=== PATIENT | male | born 1975 | race African-American/Black ===

== ENCOUNTER 2023-05-28 21:38 | Inpatient (IN) | payer OTHER ==
[2023-05-29] MEDS ORDERED: Acetaminophen 325 MG TAB PO PRN (01:23)
[2023-05-29] MEDS ORDERED: Ondansetron ODT 4 MG TAB PO PRN (01:23)
[2023-05-29 01:52] VITALS: BMI 61.7
[2023-05-29] MEDS ORDERED: Aspirin Chewable 81 MG TAB PO SCH (02:30)
[2023-05-29] MEDS ORDERED: Gabapentin 300 MG CAP PO SCH ×2 (03:30)
[2023-05-29 04:36] LABS: #Eosinphils 0.1 thou/uL (0.0-0.7); #Monocytes 0.7 thou/uL (0.11-0.59); #Neutrophils 3.5 thou/uL (1.40-6.50); %Basophils 0.5 % (0.0-1.0); %Eosinophils 0.9 % (0.0-10.0); %Lymphocytes 33.8 % (21.0-51.0); %Monocytes 10.7 % (0.0-10.0); %Neutrophils 53.6 % (42.0-75.0); Hematocrit 41.4 % (42.0-52.0); Hemoglobin 13.3 g/dL (14.0-18.0); Mean Corpuscular HGB CONC 32.1 g/dL (32.0-36.0); Mean Corpuscular Hemoglobin 32.7 pg (27.0-31.0); Mean Corpuscular Volume 101.7 fl (78.0-98.0); Mean Platelet Volume 9.4 fL (7.4-10.4); Platelet Count 191 10x3/uL (130-400); RBC Distribution Width 14.2 % (11.5-14.5); Red Blood Cell (RBC) Count 4.07 mill/uL (4.70-6.10); White Blood Cell (WBC) Count 6.5 10x3/uL (4.8-10.8)
[2023-05-29 04:44] LABS: Hemoglobin A1c 7.3 % (4.0-6.0)
[2023-05-29 05:02] LABS: ALT (SGPT) 18 U/L (8-55); AST (SGOT) 20 U/L (5-34); Albumin 3.7 g/dL (3.5-5.0); Alkaline Phosphatase 96 U/L (40-110); Anion Gap 16 mmol/L (10-20); BUN (Urea Nitrogen) 45 mg/dL (8.9-20.6); Bilirubin, Total 0.9 mg/dL (0.2-1.2); Calc. Creatinine Clearance 111 mL/min (70-130); Calcium 8.7 mg/dL (7.8-10.44); Carbon Dioxide 28 mmol/L (22-29); Chloride 99 mmol/L (98-107); Estimated GFR 31; Globulin 4.1 g/dL (2.4-3.5); Glucose 147 mg/dL (70-105); Potassium 3.9 mmol/L (3.5-5.1); Protein, Total 7.8 g/dL (6.0-8.3); Sodium 139 mmol/L (136-145)
[2023-05-29 05:03] LABS: Cardiac Risk 4.3 (Less than 4.5)
[2023-05-29 05:10] LABS: Troponin I 0.263 ng/mL (< 0.028)
[2023-05-29 07:54] LABS: Critical Call Chem Troponin I RESULT DECREASING; Troponin I 0.224 ng/mL (< 0.028)
[2023-05-29] MEDS ORDERED: Famotidine 20 MG TAB PO SCH (09:00)
[2023-05-29] MEDS ORDERED: Furosemide 40 MG/4 ML VIAL SLOW IVP SCH (09:30)
[2023-05-29] MEDS: Metoprolol Tartrate 25 MG TAB PO SCH ×2 (10:48→20:08)
[2023-05-29] MEDS: Aspirin Chewable 81 MG TAB PO SCH (10:48)
[2023-05-29] MEDS: Heparin 5,000 UNITS/ML VIAL SC SCH ×2 (10:50→15:50)
[2023-05-29] MEDS: DULoxetine 60 MG CAP PO SCH ×2 (10:50→20:09)
[2023-05-29 16:16] LABS: Hematocrit 43.9 % (42.0-52.0); Hemoglobin 14.1 g/dL (14.0-18.0); Platelet Count 198 10x3/uL (130-400)
[2023-05-29] MEDS: Gabapentin 300 MG CAP PO SCH ×2 (16:22→20:09)
[2023-05-29] MEDS: Heparin 10,000 UNITS/ 10 ML VIAL SLOW IVP SCH (17:17)
[2023-05-29] MEDS: Heparin 25,000 units/D5W 500 ML IVPB SCH (17:20)
[2023-05-29] MEDS: Famotidine 20 MG TAB PO SCH (20:08)
[2023-05-29] MEDS: Atorvastatin Calcium 40 MG TAB PO SCH (20:09)
[2023-05-30] MEDS: Heparin 10,000 UNITS/ 10 ML VIAL SLOW IVP SCH ×2 (00:17→18:04)
[2023-05-30] MEDS: Furosemide 100 MG/10 ML VIAL SLOW IVP SCH ×2 (05:49→14:18)
[2023-05-30 07:38] LABS: PTT Greater than 250.0 sec (22.9-36.1)
[2023-05-30] MEDS: Metoprolol Tartrate 25 MG TAB PO SCH ×2 (09:10→20:53)
[2023-05-30] MEDS: Famotidine 20 MG TAB PO SCH ×2 (09:10→20:54)
[2023-05-30] MEDS: DULoxetine 60 MG CAP PO SCH ×2 (09:10→20:51)
[2023-05-30] MEDS: Gabapentin 300 MG CAP PO SCH ×3 (09:10→20:52)
[2023-05-30] MEDS: Aspirin Chewable 81 MG TAB PO SCH (09:10)
[2023-05-30 15:15] LABS: Anion Gap 16 mmol/L (10-20); BUN (Urea Nitrogen) 31 mg/dL (8.9-20.6); Calc. Creatinine Clearance 146 mL/min (70-130); Calcium 9.1 mg/dL (7.8-10.44); Carbon Dioxide 34 mmol/L (22-29); Chloride 96 mmol/L (98-107); Estimated GFR 45; Glucose 131 mg/dL (70-105); Potassium 4.2 mmol/L (3.5-5.1); Sodium 142 mmol/L (136-145)
[2023-05-30] MEDS: Heparin 25,000 units/D5W 500 ML IVPB SCH (18:05)
[2023-05-30] MEDS: Atorvastatin Calcium 40 MG TAB PO SCH (20:52)
[2023-05-31] MEDS: Heparin 10,000 UNITS/ 10 ML VIAL SLOW IVP SCH ×2 (02:56→20:44)
[2023-05-31] MEDS: Furosemide 100 MG/10 ML VIAL SLOW IVP SCH ×2 (05:48→14:11)
[2023-05-31 06:02] LABS: Anion Gap 13 mmol/L (10-20); BUN (Urea Nitrogen) 29 mg/dL (8.9-20.6); Calc. Creatinine Clearance 164 mL/min (70-130); Calcium 9.1 mg/dL (7.8-10.44); Carbon Dioxide 33 mmol/L (22-29); Chloride 95 mmol/L (98-107); Estimated GFR 51; Glucose 137 mg/dL (70-105); Potassium 3.4 mmol/L (3.5-5.1); Sodium 138 mmol/L (136-145)
[2023-05-31] MEDS: Famotidine 20 MG TAB PO SCH ×2 (08:57→20:09)
[2023-05-31] MEDS: Aspirin Chewable 81 MG TAB PO SCH (08:57)
[2023-05-31] MEDS: DULoxetine 60 MG CAP PO SCH ×2 (08:57→20:01)
[2023-05-31] MEDS: Gabapentin 300 MG CAP PO SCH ×3 (08:57→20:09)
[2023-05-31] MEDS: Metoprolol Tartrate 25 MG TAB PO SCH ×3 (08:58→20:52)
[2023-05-31] MEDS: Heparin 25,000 units/D5W 500 ML IVPB SCH (11:44)
[2023-05-31] MEDS ORDERED: Guaifenesin DM 100-10/5 ML UDCUP PO PRN (14:41)
[2023-05-31] MEDS ORDERED: Potassium Chloride 20 MEQ TAB PO SCH (14:45)
[2023-05-31 16:28] LABS: Hematocrit 45.9 % (42.0-52.0); Hemoglobin 14.4 g/dL (14.0-18.0); Platelet Count 212 10x3/uL (130-400)
[2023-05-31] MEDS: Atorvastatin Calcium 40 MG TAB PO SCH (20:09)
[2023-05-31 20:13] VITALS: BP 135/81; TEMP 98.4
== END 2023-05-31 22:01 | disposition short-term general hospital (02) | DRG 280 ==
LOC: EEVIPCON → 2SW 05-29 01:21 → OBSVTOIN 05-30 14:59
PROVIDERS: ADMIT Student in an Organized Health Care Education/Training Program; ATTEND Internal Medicine
PROC: 5A09357 Assistance with Respiratory Ventilation, Less than 24 Consecutive Hours, Continuous Positive Airway Pressure (ICD-10-PCS; principal; 2023-05-30)
DX: I13.0 Hypertensive heart and chronic kidney disease with heart failure and stage 1 through stage 4 chronic kidney disease, or unspecified chronic kidney disease (principal); I50.33 Acute on chronic diastolic (congestive) heart failure; I21.A1 Myocardial infarction type 2; E66.2 Morbid (severe) obesity with alveolar hypoventilation; Z68.44 Body mass index [BMI] 60.0-69.9, adult; N17.9 Acute kidney failure, unspecified; E78.5 Hyperlipidemia, unspecified; N18.9 Chronic kidney disease, unspecified; E11.40 Type 2 diabetes mellitus with diabetic neuropathy, unspecified; E11.22 Type 2 diabetes mellitus with diabetic chronic kidney disease; G47.33 Obstructive sleep apnea (adult) (pediatric); E03.9 Hypothyroidism, unspecified; E11.69 Type 2 diabetes mellitus with other specified complication; I08.3 Combined rheumatic disorders of mitral, aortic and tricuspid valves; Z88.0 Allergy status to penicillin; Z79.899 Other long term (current) drug therapy; Z88.2 Allergy status to sulfonamides; Z90.49 Acquired absence of other specified parts of digestive tract
CPT/HCPCS: 36415; 36416; 76770; 80048; 80053; 80061; 82570; 83036; 84484; 84540; 85014; 85018; 85025; 85049; 85730; 93306; 94760; 96372; 96374; 96375; 96376; G0378; J1644; J1940

== ENCOUNTER 2024-07-05 21:07 | Inpatient (IN) | payer OTHER ==
[2024-07-05 22:30] LABS: #Basophils Less than 0.03 10x3/uL (0.0-0.2); %Basophils 0.3 % (0.0-1.0); %Eosinophils 1.5 % (0.0-10.0); %Lymphocytes 35.9 % (21.0-51.0); %Monocytes 8.9 % (0.0-10.0); %Neutrophils 53.1 % (42.0-75.0); Hematocrit 45.8 % (42.0-52.0); Hemoglobin 13.8 g/dL (14.0-18.0); Mean Corpuscular HGB CONC 30.1 g/dL (32.0-36.0); Mean Corpuscular Hemoglobin 30.7 pg (27.0-31.0); Mean Corpuscular Volume 101.8 fL (78.0-98.0); Mean Platelet Volume 9.3 fL (7.4-10.4); Platelet Count 147 10x3/uL (130-400); RBC Distribution Width 14.4 % (11.5-14.5)
[2024-07-05] MEDS ORDERED: Morphine 4 MG/ML VIAL ONE (22:39)
[2024-07-05 22:44] LABS: CRP,High Sensitivity (Inhouse) 3.06 mg/dL (< or = 0.5)
[2024-07-05 22:45] LABS: ALT (SGPT) 18 U/L (8-55); AST (SGOT) 20 U/L (5-34); Albumin 2.9 g/dL (3.5-5.0); Alkaline Phosphatase 126 U/L (40-110); Anion Gap 10 mmol/L (10-20); BUN (Urea Nitrogen) 14 mg/dL (8.9-20.6); Calc. Creatinine Clearance 0 mL/min (70-130); Calcium 8.7 mg/dL (7.8-10.44); Carbon Dioxide 27 mmol/L (22-29); Chloride 108 mmol/L (98-107); Estimated GFR 94; Globulin 4.5 g/dL (2.4-3.5); Glucose 109 mg/dL (70-105); Lipase 31 U/L (8-78); Potassium 4.4 mmol/L (3.5-5.1); Protein, Total 7.4 g/dL (6.0-8.3); Sodium 141 mmol/L (136-145)
[2024-07-05] MEDS ORDERED: Piperacillin/Tazobactam 4.5 GM VIAL ONE (22:56)
[2024-07-05] MEDS ORDERED: Sodium Chloride 0.9% 100 ML ONE (22:56)
[2024-07-06] MEDS ORDERED: Gabapentin 300 MG CAP ONE (00:15)
[2024-07-06 01:34] LABS: Bacteria/HPF None Seen HPF (None Seen); Bilirubin Negative (Negative); Blood, Urine Negative (Negative); CAUTI Indications for Culture Pelvic or flank pain; Clarity Turbid (Clear); Glucose, Urine (Dipstick) Normal (Negative); Ketone, Urine Negative (Negative); Leukocyte Negative Leu/uL (Negative); Nitrite Negative (Negative); Protein, Urine (Dipstick) 100 mg/dL (Neg-Trace); RBC/HPF 0-3 HPF (0-3); Specific Gravity, Urine 1.031 (1.002-1.036); Squamous Epithelial 0-3 HPF (0-3); Urobilinogen Normal mg/dL (Less than 2); pH, Urine 5.5 (5.0-9.0)
[2024-07-06 01:37] LABS: Urine Culture Reflex No No
[2024-07-06] MEDS ORDERED: Ketorolac Tromethamine 30 MG (1 mL) VIAL ONE (02:13)
[2024-07-06] MEDS ORDERED: Furosemide 40 MG (4 mL) VIAL ONE ×3 (02:16→17:36)
[2024-07-06] MEDS ORDERED: Dextrose 50% Abboject 50 ML SYRINGE SLOW IVP PRN (02:27)
[2024-07-06] MEDS ORDERED: Dextrose 5% in Water 1,000 ML IV PRN (02:27)
[2024-07-06] MEDS ORDERED: Glucagon 1 MG/ML KIT IM PRN (02:27)
[2024-07-06] MEDS ORDERED: Acetaminophen 325 MG TAB PO PRN (02:27)
[2024-07-06] MEDS ORDERED: Ondansetron PF 4 MG/2 ML Vial IVP PRN (02:27)
[2024-07-06] MEDS ORDERED: VANCO/ABX IVPB PRN (02:36)
[2024-07-06] MEDS: Vancomycin (BATCH) 2.5 GM in Premix 1 BAG IVPB SCH (03:28)
[2024-07-06 04:38] LABS: #Basophils 0.03 10x3/uL (0.0-0.2); %Basophils 0.5 % (0.0-1.0); %Eosinophils 1.4 % (0.0-10.0); %Lymphocytes 34.3 % (21.0-51.0); %Monocytes 8.5 % (0.0-10.0); %Neutrophils 54.8 % (42.0-75.0); Hematocrit 48.7 % (42.0-52.0); Hemoglobin 14.2 g/dL (14.0-18.0); Mean Corpuscular HGB CONC 29.2 g/dL (32.0-36.0); Mean Corpuscular Hemoglobin 31.2 pg (27.0-31.0); Mean Platelet Volume 9.7 fL (7.4-10.4); Platelet Count 125 10x3/uL (130-400); RBC Distribution Width 14.6 % (11.5-14.5); Red Blood Cell (RBC) Count 4.55 mill/uL (4.70-6.10)
[2024-07-06] MEDS ORDERED: traMADol HCl 50 MG TAB ONE ×3 (06:22→11:33)
[2024-07-06] MEDS: traMADol HCl 50 MG TAB PO PRN (06:28)
[2024-07-06] MEDS: Furosemide 40 MG (4 mL) VIAL SLOW IVP SCH (06:33)
[2024-07-06 07:07] LABS: Chloride 108 mmol/L (98-107); Potassium 4.3 mmol/L (3.5-5.1); Sodium 144 mmol/L (136-145)
[2024-07-06 07:08] LABS: Calcium 8.8 mg/dL (7.8-10.44); Glucose 173 mg/dL (70-105)
[2024-07-06 07:10] LABS: Anion Gap 14 mmol/L (10-20); Carbon Dioxide 26 mmol/L (22-29)
[2024-07-06 07:12] LABS: BUN (Urea Nitrogen) 17 mg/dL (8.9-20.6); Calc. Creatinine Clearance 0 mL/min (70-130); Estimated GFR 86
[2024-07-06] MEDS ORDERED: Heparin 5,000 UNITS/ML VIAL ONE ×2 (11:04→17:36)
[2024-07-06] MEDS ORDERED: Morphine 2 MG/ML VIAL ONE (11:06)
[2024-07-06] MEDS: Morphine 2 MG/ML VIAL SLOW IVP PRN (11:14)
[2024-07-06] MEDS: Heparin 5,000 UNITS/ML VIAL SC SCH (11:15)
[2024-07-06] MEDS: Vancomycin 1 GM in Premix 1 BAG IVPB SCH (11:29)
[2024-07-06] MEDS ORDERED: Vancomycin (BATCH) 2 GM/500 ML BAG ONE (11:34)
[2024-07-06] MEDS: Vancomycin (BATCH) 2 GM in Premix 1 BAG IVPB SCH (13:12)
[2024-07-06] MEDS: Ketoconazole 2% Cream 15 gm Tube TOP SCH (13:50)
[2024-07-06] MEDS ORDERED: diphenhydrAMINE 25 MG CAP ONE (17:36)
[2024-07-06] MEDS: diphenhydrAMINE 25 MG CAP PO PRN (17:41)
[2024-07-06] MEDS: Gabapentin 300 MG CAP PO SCH (20:47)
[2024-07-06 22:28] VITALS: BMI 61.0
[2024-07-06 23:30] LABS: Hematocrit 43.1 % (42.0-52.0); Hemoglobin 13.2 g/dL (14.0-18.0); Mean Corpuscular HGB CONC 30.6 g/dL (32.0-36.0); Mean Corpuscular Hemoglobin 31.4 pg (27.0-31.0); Mean Corpuscular Volume 102.6 fL (78.0-98.0); Mean Platelet Volume 9.3 fL (7.4-10.4); Platelet Count 140 10x3/uL (130-400); RBC Distribution Width 14.5 % (11.5-14.5)
[2024-07-07 05:12] LABS: Anion Gap 10 mmol/L (10-20); BUN (Urea Nitrogen) 15 mg/dL (8.9-20.6); Calc. Creatinine Clearance 285 mL/min (70-130); Calcium 8.8 mg/dL (7.8-10.44); Carbon Dioxide 32 mmol/L (22-29); Chloride 103 mmol/L (98-107); Estimated GFR 95; Glucose 109 mg/dL (70-105); Magnesium 1.7 mg/dL (1.6-2.6); Sodium 141 mmol/L (136-145)
[2024-07-07] MEDS: Metolazone 5 MG TAB PO SCH (05:14)
[2024-07-07 05:18] LABS: Vancomycin, Random 24.4 ug/mL (See Comment)
[2024-07-07] MEDS ORDERED: Empagliflozin 10 MG TAB PO SCH (09:00)
[2024-07-07] MEDS: Aspirin 81 mg Enteric Coated Tablet PO SCH (09:03)
[2024-07-07] MEDS: Carvedilol 6.25 MG TAB PO SCH (09:03)
[2024-07-07] MEDS: Vancomycin (BATCH) 1.75 GM in Premix 1 BAG IVPB SCH (10:58)
[2024-07-07] MEDS: HYDROmorphone 0.5 MG/0.5 ML SYRINGE SLOW IVP SCH (13:22)
[2024-07-07] MEDS: oxyCODONE 5 MG TAB PO PRN (15:58)
[2024-07-07] MEDS: Atorvastatin Calcium 40 MG TAB PO SCH (20:55)
[2024-07-07 23:48] LABS: Hematocrit 43.6 % (42.0-52.0); Hemoglobin 13.2 g/dL (14.0-18.0); Mean Corpuscular HGB CONC 30.3 g/dL (32.0-36.0); Mean Corpuscular Hemoglobin 31.4 pg (27.0-31.0); Mean Corpuscular Volume 103.6 fL (78.0-98.0); Mean Platelet Volume 9.4 fL (7.4-10.4); Platelet Count 158 10x3/uL (130-400); RBC Distribution Width 14.2 % (11.5-14.5); Red Blood Cell (RBC) Count 4.21 mill/uL (4.70-6.10)
[2024-07-08 06:40] LABS: Anion Gap 15 mmol/L (10-20); BUN (Urea Nitrogen) 14 mg/dL (8.9-20.6); Calc. Creatinine Clearance 247 mL/min (70-130); Calcium 9.4 mg/dL (7.8-10.44); Carbon Dioxide 31 mmol/L (22-29); Chloride 98 mmol/L (98-107); Estimated GFR 80; Glucose 112 mg/dL (70-105); Magnesium 1.7 mg/dL (1.6-2.6); Potassium 3.9 mmol/L (3.5-5.1); Sodium 140 mmol/L (136-145)
[2024-07-08] MEDS: oxyCODONE 5 MG TAB PO PRN (22:51)
[2024-07-08 23:12] LABS: Hematocrit 42.3 % (42.0-52.0); Hemoglobin 12.9 g/dL (14.0-18.0); Mean Corpuscular HGB CONC 30.5 g/dL (32.0-36.0); Mean Corpuscular Hemoglobin 31.2 pg (27.0-31.0); Mean Corpuscular Volume 102.4 fL (78.0-98.0); Mean Platelet Volume 9.2 fL (7.4-10.4); Platelet Count 148 10x3/uL (130-400); RBC Distribution Width 14.1 % (11.5-14.5); Red Blood Cell (RBC) Count 4.13 mill/uL (4.70-6.10)
[2024-07-09 05:29] LABS: Vancomycin, Random 24.8 ug/mL (See Comment)
[2024-07-09 07:09] LABS: Anion Gap 13 mmol/L (10-20); BUN (Urea Nitrogen) 16 mg/dL (8.9-20.6); Calc. Creatinine Clearance 252 mL/min (70-130); Calcium 8.7 mg/dL (7.8-10.44); Carbon Dioxide 36 mmol/L (22-29); Chloride 92 mmol/L (98-107); Estimated GFR 82; Glucose 156 mg/dL (70-105); Magnesium 1.6 mg/dL (1.6-2.6); Potassium 3.6 mmol/L (3.5-5.1); Sodium 137 mmol/L (136-145)
[2024-07-09] MEDS: Lisinopril 10 MG TAB PO SCH (08:48)
[2024-07-09] MEDS: Bumetanide 1 MG/4 ML VIAL IVP SCH (18:11)
[2024-07-09 23:56] LABS: Hematocrit 42.7 % (42.0-52.0); Hemoglobin 13.2 g/dL (14.0-18.0); Mean Corpuscular HGB CONC 30.9 g/dL (32.0-36.0); Mean Corpuscular Hemoglobin 31.6 pg (27.0-31.0); Mean Corpuscular Volume 102.2 fL (78.0-98.0); Mean Platelet Volume 8.8 fL (7.4-10.4); Platelet Count 152 10x3/uL (130-400); RBC Distribution Width 14.2 % (11.5-14.5); Red Blood Cell (RBC) Count 4.18 mill/uL (4.70-6.10)
[2024-07-10 06:55] LABS: Anion Gap 11 mmol/L (10-20); BUN (Urea Nitrogen) 15 mg/dL (8.9-20.6); Calc. Creatinine Clearance 235 mL/min (70-130); Calcium 9.3 mg/dL (7.8-10.44); Carbon Dioxide 44 mmol/L (22-29); Chloride 89 mmol/L (98-107); Estimated GFR 75; Glucose 115 mg/dL (70-105); Magnesium 1.6 mg/dL (1.6-2.6); Potassium 3.8 mmol/L (3.5-5.1); Sodium 140 mmol/L (136-145)
[2024-07-10] MEDS: Magnesium 2 GM/50 ML(in water) 2 GM in Premix 1 BAG IVPB SCH (10:09)
[2024-07-10 22:48] LABS: Hemoglobin 12.3 g/dL (14.0-18.0); Mean Corpuscular Hemoglobin 31.3 pg (27.0-31.0); Mean Corpuscular Volume 104.3 fL (78.0-98.0); Mean Platelet Volume 8.7 fL (7.4-10.4); Platelet Count 135 10x3/uL (130-400); RBC Distribution Width 14.2 % (11.5-14.5); Red Blood Cell (RBC) Count 3.93 mill/uL (4.70-6.10)
[2024-07-11 05:18] LABS: Anion Gap 12 mmol/L (10-20); BUN (Urea Nitrogen) 19 mg/dL (8.9-20.6); Calc. Creatinine Clearance 192 mL/min (70-130); Calcium 8.1 mg/dL (7.8-10.44); Carbon Dioxide 41 mmol/L (22-29); Chloride 89 mmol/L (98-107); Estimated GFR 59; Glucose 145 mg/dL (70-105); Magnesium 1.8 mg/dL (1.6-2.6); Potassium 3.8 mmol/L (3.5-5.1); Sodium 138 mmol/L (136-145); Vancomycin, Random 34.9 ug/mL (See Comment)
[2024-07-11] MEDS ORDERED: Clindamycin/D5W 600 MG in Premix 1 BAG IVPB SCH (14:00)
[2024-07-11] MEDS: Bumetanide 1 MG/4 ML VIAL IVP SCH (15:50)
[2024-07-11] MEDS: Lidocaine 2% 6 ML (Jelly) SYR TOP PRN (21:44)
[2024-07-11 23:28] LABS: Hematocrit 42.2 % (42.0-52.0); Hemoglobin 12.6 g/dL (14.0-18.0); Mean Corpuscular HGB CONC 29.9 g/dL (32.0-36.0); Mean Corpuscular Hemoglobin 31.1 pg (27.0-31.0); Mean Corpuscular Volume 104.2 fL (78.0-98.0); Platelet Count 142 10x3/uL (130-400); RBC Distribution Width 14.4 % (11.5-14.5); Red Blood Cell (RBC) Count 4.05 mill/uL (4.70-6.10)
[2024-07-12 05:23] LABS: Anion Gap 13 mmol/L (10-20); BUN (Urea Nitrogen) 19 mg/dL (8.4-25.7); Calc. Creatinine Clearance 181 mL/min (70-130); Calcium 8.4 mg/dL (7.8-10.44); Carbon Dioxide 40 mmol/L (22-29); Chloride 88 mmol/L (98-107); Estimated GFR 59; Glucose 113 mg/dL (70-105); Magnesium 1.7 mg/dL (1.6-2.6); Potassium 3.3 mmol/L (3.5-5.1); Sodium 138 mmol/L (136-145)
[2024-07-12] MEDS: Potassium Chloride 20 MEQ TAB PO SCH ×2 (09:09→14:56)
[2024-07-12] MEDS: Albumin 25% 25 GM (100 mL) BOT IVPB SCH (17:33)
[2024-07-12] MEDS: oxyCODONE 5 MG TAB PO PRN (20:39)
[2024-07-12] MEDS: Ketoconazole 2% Cream 15 gm Tube TOP SCH (20:41)
[2024-07-12] MEDS: Acetaminophen 500 MG TAB PO SCH (20:53)
[2024-07-13 05:42] LABS: Anion Gap 14 mmol/L (10-20); BUN (Urea Nitrogen) 22 mg/dL (8.4-25.7); Calc. Creatinine Clearance 193 mL/min (70-130); Calcium 8.9 mg/dL (7.8-10.44); Carbon Dioxide 42 mmol/L (22-29); Chloride 92 mmol/L (98-107); Estimated GFR 62; Glucose 116 mg/dL (70-105); Potassium 3.5 mmol/L (3.5-5.1); Sodium 144 mmol/L (136-145)
[2024-07-13] MEDS: Albumin 25% 25 GM (100 mL) BOT IVPB SCH (10:17)
[2024-07-13 17:57] VITALS: BMI 59.4
[2024-07-13] MEDS: Lactated Ringer's 1,000 ML IV SCH (21:08)
[2024-07-14 04:45] LABS: Anion Gap 11 mmol/L (10-20); BUN (Urea Nitrogen) 20 mg/dL (8.4-25.7); Calc. Creatinine Clearance 224 mL/min (70-130); Carbon Dioxide 41 mmol/L (22-29); Chloride 93 mmol/L (98-107); Estimated GFR 74; Glucose 158 mg/dL (70-105); Potassium 3.9 mmol/L (3.5-5.1); Sodium 141 mmol/L (136-145)
[2024-07-14 15:25] VITALS: BP 159/90; TEMP 98
== END 2024-07-14 18:25 | DRG 637 ==
LOC: ERS 21:07 → EEVIPCON 21:07 → ERHOLD 07-06 02:48 → OBS 07-06 18:25 → OBSVTOIN 07-07 09:55
PROVIDERS: ADMIT Student in an Organized Health Care Education/Training Program; ATTEND Hospitalist
DX: E11.628 Type 2 diabetes mellitus with other skin complications (principal); I50.33 Acute on chronic diastolic (congestive) heart failure; J96.21 Acute and chronic respiratory failure with hypoxia; L03.314 Cellulitis of groin; E66.2 Morbid (severe) obesity with alveolar hypoventilation; Z68.44 Body mass index [BMI] 60.0-69.9, adult; N49.2 Inflammatory disorders of scrotum; N17.9 Acute kidney failure, unspecified; I11.0 Hypertensive heart disease with heart failure; B35.4 Tinea corporis; B35.6 Tinea cruris; E11.9 Type 2 diabetes mellitus without complications; E78.5 Hyperlipidemia, unspecified; Z88.0 Allergy status to penicillin; E03.9 Hypothyroidism, unspecified; I25.10 Atherosclerotic heart disease of native coronary artery without angina pectoris
CPT/HCPCS: 36415; 36416; 76870; 80048; 80053; 80202; 81001; 83605; 83690; 83735; 83880; 84484; 85025; 85027; 86141; 87040; 87081; 87086; 93005; 93976; 96365; 96366; 96367; 96372; 96375; 96376; G0378; J1171; J1644; J1885; J1940; J2272; J2543; J3370; J3475; J3490; P9047

== ENCOUNTER 2025-05-20 02:24 | Inpatient (IN) | payer OTHER ==
[2025-05-20 03:12] VITALS: BMI 61.4
[2025-05-20] MEDS ORDERED: Acetaminophen 325 MG TAB PO PRN (04:28)
[2025-05-20] MEDS ORDERED: Ondansetron PF 4 MG/2 ML Vial IVP PRN (04:28)
[2025-05-20] MEDS ORDERED: Melatonin 3 MG TAB PO PRN (04:28)
[2025-05-20] MEDS ORDERED: Heparin 10,000 UNITS/ 10 ML VIAL SLOW IVP SCH ×2 (05:45→14:00)
[2025-05-20] MEDS: Famotidine 20 MG TAB PO SCH (08:23)
[2025-05-20] MEDS: FLU (Fluarix Triv) 25-26 (6MOS UP)/PF 45 MCG/0.5 ML Syringe IM ONE (08:24)
[2025-05-20] MEDS ORDERED: hydrALAZINE 20 MG/ML VIAL SLOW IVP PRN (08:38)
[2025-05-20] MEDS: Aspirin 81 mg Enteric Coated Tablet PO SCH (08:54)
[2025-05-20] MEDS: Lisinopril 5 MG TAB PO SCH (08:54)
[2025-05-20] MEDS: Gabapentin 300 MG CAP PO SCH (08:55)
[2025-05-20] MEDS: Famotidine/PF 20 mg/2ml Vial SLOW IVP SCH (08:56)
[2025-05-20] MEDS: Carvedilol 6.25 MG TAB PO SCH (08:56)
[2025-05-20] MEDS: Spironolactone 25 MG TAB PO SCH ×2 (08:56→17:44)
[2025-05-20 09:00] LABS: Hematocrit 45.8 % (42.0-52.0); Hemoglobin 13.8 g/dL (14.0-18.0); Platelet Count 168 10x3/uL (130-400)
[2025-05-20] MEDS ORDERED: Dextrose 50% Abboject 50 ML SYRINGE SLOW IVP PRN (09:00)
[2025-05-20] MEDS ORDERED: Enoxaparin 60 MG (0.6 mL) SYRINGE SC SCH (09:00)
[2025-05-20] MEDS ORDERED: Glucagon 1 MG/ML KIT IM PRN (09:00)
[2025-05-20 09:46] LABS: INR-International Normal Ratio 1.2; Prothrombin Time 15.6 sec (12.0-14.7)
[2025-05-20 09:47] LABS: PTT 54.0 sec (22.9-36.1)
[2025-05-20] MEDS: Insulin Glargine 30 UNITS/0.3 ML VIAL SC SCH (23:03)
[2025-05-21 04:06] LABS: #Basophils 0.04 10x3/uL (0.0-0.2); #Eosinophils 0.14 10x3/uL (0.0-0.7); #Monocytes 0.54 10x3/uL (0.11-0.59); #Neutrophils 4.10 10x3/uL (1.40-6.50); %Basophils 0.6 % (0.0-1.0); %Eosinophils 2.0 % (0.0-10.0); %Lymphocytes 32.0 % (21.0-51.0); %Monocytes 7.6 % (0.0-10.0); %Neutrophils 57.4 % (42.0-75.0); Hematocrit 44.2 % (42.0-52.0); Hemoglobin 13.5 g/dL (14.0-18.0); Mean Corpuscular Hemoglobin 30.8 pg (27.0-31.0); Mean Corpuscular Volume 100.7 fL (78.0-98.0); Platelet Count 182 10x3/uL (130-400); Red Blood Cell (RBC) Count 4.39 mill/uL (4.70-6.10); White Blood Cell (WBC) Count 7.13 10x3/uL (4.8-10.8)
[2025-05-21 04:25] LABS: CRP, High Sensitivity at Bryan 6.00 mg/dL (< or = 0.5)
[2025-05-21 04:27] LABS: ALT (SGPT) 21 U/L (Less than 45); AST (SGOT) 19 U/L (11-34); Albumin 3.1 g/dL (3.1-4.5); Alkaline Phosphatase 137 U/L (40-110); Anion Gap 16 mmol/L (10-20); BUN (Urea Nitrogen) 20 mg/dL (8.4-25.7); Bilirubin, Total 0.6 mg/dL (0.3-1.2); Calc. Creatinine Clearance 269 mL/min (70-130); Calcium 9.0 mg/dL (7.8-10.44); Carbon Dioxide 28 mmol/L (22-29); Chloride 98 mmol/L (98-107); Globulin 4.7 g/dL (2.4-3.5); Glucose 187 mg/dL (70-105); Potassium 4.0 mmol/L (3.5-5.1); Sodium 138 mmol/L (136-145)
[2025-05-21] MEDS: Apixaban 5 MG TAB PO SCH (18:36)
[2025-05-22] MEDS: Apixaban 5 MG TAB PO SCH (07:51)
[2025-05-22 16:48] VITALS: BP 120/75; TEMP 98.4
== END 2025-05-22 17:45 | disposition home or self-care (01) | DRG 300 ==
LOC: SURG B 02:24 → EEVIPCON 02:24
PROVIDERS: ADMIT Internal Medicine; ATTEND Internal Medicine
PROC: 5A0935A Assistance with Respiratory Ventilation, Less than 24 Consecutive Hours, High Flow/Velocity Cannula (ICD-10-PCS; principal; 2025-05-20)
DX: I82.412 Acute embolism and thrombosis of left femoral vein (principal); I50.22 Chronic systolic (congestive) heart failure; J96.11 Chronic respiratory failure with hypoxia; Z68.44 Body mass index [BMI] 60.0-69.9, adult; L03.116 Cellulitis of left lower limb; E66.01 Morbid (severe) obesity due to excess calories; G47.33 Obstructive sleep apnea (adult) (pediatric); E78.5 Hyperlipidemia, unspecified; E11.42 Type 2 diabetes mellitus with diabetic polyneuropathy; I11.0 Hypertensive heart disease with heart failure; E16.2 Hypoglycemia, unspecified; Z91.010 Allergy to peanuts; Z88.0 Allergy status to penicillin; Z88.2 Allergy status to sulfonamides; Z99.81 Dependence on supplemental oxygen; Z98.890 Other specified postprocedural states; Z90.49 Acquired absence of other specified parts of digestive tract; Z85.038 Personal history of other malignant neoplasm of large intestine; E03.9 Hypothyroidism, unspecified; I25.10 Atherosclerotic heart disease of native coronary artery without angina pectoris; Z79.01 Long term (current) use of anticoagulants; Z79.899 Other long term (current) drug therapy; Z79.82 Long term (current) use of aspirin
CPT/HCPCS: 36415; 36416; 71045; 80053; 82550; 83605; 83880; 85014; 85018; 85025; 85049; 85610; 85730; 86140; 86141; 96374; J1644; J1650; J1815; J2270